=== PATIENT | female | born 1995 | race Caucasian/White ===

== ENCOUNTER 2017-11-13 02:30 | Inpatient (IN) | payer MEDICAID ==
[2017-11-13] MEDS ORDERED: Phenaphthazine-PH Test Paper VI ONE (02:53)
[2017-11-13] MEDS: Lactated Ringer's 1,000 ML IV SCH ×3 (03:15→05:44)
[2017-11-13 03:16] VITALS: BMI 22.1
[2017-11-13] MEDS ORDERED: Oxytocin 30 units/LR 500ML 30 U/500 ML BAG IV SCH ×2 (03:30→03:39)
[2017-11-13 03:41] LABS: BASO % 0.3 % (0.0-2.0); EOS % 0.2 % (0.0-4.0); HEMOGLOBIN 13.7 g/dL (12.0-16.0); LYMPH # 2.8 K/uL (1.0-4.3); LYMPH % 22.3 % (20.0-40.0); MEAN CELL VOLUME 83.8 fl (81.0-99.0); MEAN CORPUSCULAR HEMOGLOBIN 27.3 pg (27.0-31.0); MEAN CORPUSCULAR HGB CONC 32.5 g/dL (33.0-37.0); MEAN PLATELET VOLUME 9.7 fl (7.2-11.7); MONO # 1.1 K/uL (0.0-0.8); MONO % 8.8 % (0.0-10.0); NEUT # 8.5 K/uL (1.8-7.0); NEUT % 68.4 % (50.0-75.0); RBC 5.01 Mil/uL (3.80-5.20); RED CELL DISTRIBUTION WIDTH 14.1 % (11.5-14.5); WHITE BLOOD COUNT 12.5 K/uL (4.8-10.8)
[2017-11-13] MEDS ORDERED: Fentanyl/Bupivacaine HCl 250 ML EPI ONE (04:14)
[2017-11-13] MEDS ORDERED: Bupivacaine HCl 0.25% PF (10 ml) Inj ONE (04:16)
[2017-11-13 06:32] VITALS: TEMP 98.4
[2017-11-13] MEDS ORDERED: Lidocaine 1% Inj (20ml) ONE (07:59)
[2017-11-13] MEDS ORDERED: Oxycodone/Acetaminophen 5/325 mg Tab PO PRN (11:35)
[2017-11-13] MEDS ORDERED: Benzocaine/Menthol SPRAY TOP PRN (11:35)
--- NOTE | 2017-11-13 11:47 | OBDS ---
DELIVERY PERSONNEL Nurse Clinical Lab Clerk Certified: brianna Delivery Doctor: Karen Tong MD Scrub Nurse: brianna Anesthesiologist: Oliver Zavala MD Disability Aide: brianna Resident: Dr Recinos MATERNAL INFORMATION Delivery Anesthesia: Local; Epidural Medications in Delivery: pitocin Estimated Blood Loss (ml): 150cc Placenta Cultured: No Maternal Complications: None RN Comments: to alive baby girl; 9/9;placenta delivered complete; laceration repaired; une ventful delivery Provider Comments: Pt progressed to complete and pushed to deliver a viable female infant through cl ear fluid at 11:08am. Apgars 9 and 9. Wt 2905 gms, 6#6. Infant placed on mother's abdomen. Cord do ubly clamped and cut. Cord blood collected. Placenta delivered spontaneously intact w/ a 3vc at 11: 12 am. Vagina and perineum infiltrated w/ lidocaine. Second degree tear repaired w/ 2-0 rapide and 3 -0v. Rectum intact. Pt and baby tolerated the procedure well. EBL: 150mL LABOR SUMMARY EDC: 11/30/2017 00:00 No. Babies in Womb: 1 Attempted: No Labor Anesthesia: Epidural LABOR INFORMATION Onset of Labor: 11/13/2017 04:00 Complete Dilatation: 11/13/2017 08:30 Other Ripening Agents: na Oxytocin: na Group B Beta Strep: Done, Result Unknown Antibiotics # of Doses: none Antibiotics Time of Last Dose: none Steroids Given: None Reason Steroids Not Administered: Not Applicable Other Reason Not Administered: none MEMBRANES Membranes Rupture Method: Spontaneous Rupture of Membranes: 11/13/2017 02:00 Length of Rupture (hrs): 9.13 Amniotic Fluid Color: Clear Amniotic Fluid Amount: Moderate Amniotic Fluid Odor: Normal STAGES OF LABOR Stage 1 hrs: 4 Stage 1 min: 30 Stage 2 hrs: 2 Stage 2 min: 38 Stage 3 hrs: 0 Stage 3 min: 4 Total Time in Labor hrs: 7 Total Time in Labor min: 12 VAGINAL DELIVERY Episiotomy: None Laceration Extension: Second Degree Laceration Type: Perineal Other Laceration: na Laceration Repair: Yes Initial Vag Sponge Count: 6 Final Vag Sponge Count: 6 Initial Vag Sharps Count: 4 Final Vag Sharps Count: 4 Sharps Count Correct: Yes Count Comment: correct BABY A INFORMATION Delivery Date/Time: 11/13/2017 11:08 Method of Delivery: Vaginal Born in Route : No : N/A Forceps: N/A Vacuum Extraction: N/A Shoulder Dystocia : No SHOULDER DYSTOCIA BABY A Delivery Date/Time: 11/13/2017 11:08 PRESENTATION/POSITION BABY A Presentation: Cephalic Cephalic Presentation: Vertex Vertex Position: Left Occipital Anterior Breech Presentation: N/A PLACENTA INFORMATION BABY A Placenta Delivery Time : 11/13/2017 11:12 Placenta Method of Delivery: Spontaneous Placenta Status: Delivered SCORES BABY A Heart Rate 1 min: >100 bpm Resp Effort 1 min: Good Cry Reflex Irritability 1 min: Cough or Sneeze or Pulls Away Muscle Tone 1 min: Active Motion Color 1 min: Body [place], Extremities Blue SCORE 1 MIN: 9 Heart Rate 5 min: >100 bpm Resp Effort 5 min: Good Cry Reflex Irritability 5 min: Cough or Sneeze or Pulls Away Muscle Tone 5 min: Active Motion Color 5 min: Body [place], Extremities Blue SCORE 5 MIN: 9 INFORMATION BABY A Gestational Age at Delivery: 38.5 Gestational Status: Term Infant Outcome : Liveborn Condition : Stable Sex: Female IDENTIFICATION/MEDS BABY A ID Band Number: [id number] ID Band Location: Left Leg; Left Arm WEIGHT/LENGTH BABY A Infant Birthweight (gms): 2905 Weight (lb): 6 Infant Weight (oz): 6 CORD INFORMATION BABY A No. Cord Vessels: 3 Nuchal Cord : N/A Nuchal Cord Other: na True Knot: na Infant Cord pH Baby Arterial: na Infant Cord pH Baby Venous: na Cord Blood Taken: Yes Banking/Donate Info: na Infant Suction: Mouth; Nose; Pharynx
[2017-11-14 05:45] LABS: HEMOGLOBIN 11.2 g/dL (12.0-16.0); MEAN CELL VOLUME 84.6 fl (81.0-99.0); MEAN CORPUSCULAR HEMOGLOBIN 27.3 pg (27.0-31.0); MEAN CORPUSCULAR HGB CONC 32.3 g/dL (33.0-37.0); RBC 4.11 Mil/uL (3.80-5.20); RED CELL DISTRIBUTION WIDTH 14.3 % (11.5-14.5); WHITE BLOOD COUNT 16.4 K/uL (4.8-10.8)
[2017-11-14] MEDS ORDERED: Influenza Vaccine 18yr & older 0.5 ML/45 MCG SYR IM ONE (10:00)
--- NOTE | 2017-11-14 11:42 | OBPPN ---
Datetime: 11/14/2017 06:31 PP Pain Prov: Within normal limits PP Nausea Prov: Denies PP Flatus Prov: No PP BM Prov: No PP Heart Prov: Normal PP Lungs Prov: Normal PP Abdomen/Uterus Prov: Normal PP CVA Tenderness Prov: Normal PP Extremities Prov: Normal PP Impression Prov: Normal progression PP Plan Prov: Continue present management PP Progress Note Prov: PPD 1 22 y/o female now on PPD 1 seen and examined at bedside this morning. No overnight events. Reports pain is controlled with pain medications. Voiding freely w/o blood noted. Pt reports not pas sing gas per rectum yet. Ambulating well w/o dizziness. Lochia is similar to menses volume. Pt is zonia astfeeding and formula feeding the baby w/o difficulty. Denies nausea, vomiting, fever, chills, ches t pain or calf pain. Physical Exam: General: A_O, resting comfortably in bed, NAD HEENT: oral mucosa moist. Lungs: CTA B/L, no wheezing, rhonchi or rales CVS: RRR, S1, S2 ABD: ND, +BS, firm fundus @ umbilical level. Soft, appropriate TTP. EXT: no edema, negative Zak's sign, Neuro/psych: AAOX3. Assessment: 22 y/o female now doing well on PPD 1 Need for influenza vaccine Plan: OOB w/ caution Regular diet Percocet and Ibuprofen for pain management Senokot for constipation Influenza vaccine ordered for today consult for Encourage and ambulation Anticipate discharge tomorrow Sultan Castaneda, PGY-1 Case d/w on-call OB hospitalist OB Hospitalist note. Pt seen on ronds this morning. Agree with PGY1 note [facility]NDO Vital Signs Provider PP: Reviewed; Within Normal Limits
[2017-11-14] MEDS: Lactated Ringer's 1,000 ML IV SCH (12:01)
--- NOTE | 2017-11-15 12:02 | OBPPN ---
Datetime: 11/15/2017 06:18 PP Pain Prov: Within normal limits PP Nausea Prov: Denies PP Flatus Prov: Yes PP BM Prov: No PP Heart Prov: Normal PP Lungs Prov: Normal PP Abdomen/Uterus Prov: Normal PP Lochia Prov: Normal PP CVA Tenderness Prov: Normal PP Extremities Prov: Normal PP Impression Prov: Normal progression PP Plan Prov: Discharge PP Progress Note Prov: 22 y/o female now on PPD 2 seen and examined at bedside this morning. No overnight events. Reports pain is controlled with pain medications. Voiding freely w/o blood noted. Pt reports passing gas per rectum but no BM yet. Ambulating well w/o dizziness. Lochia is similar to menses volume. Pt is the baby w/o difficulty. Denies nausea, vomiting, fever, chills, chest pain or calf pain. Physical Exam: General: A_O, resting comfortably in bed, NAD HEENT: oral mucosa moist. Lungs: CTA B/L, no wheezing, rhonchi or rales CVS: RRR, S1, S2 ABD: ND, +BS, firm fundus @ umbilical level. Soft, appropriate TTP. EXT: no edema, negative Zak's sign, Neuro/psych: AAOX3. Assessment: 22 y/o female now doing well on PPD 2 Plan: Discharge to home today PNV 1 PO qdaily Ibuprofen 600 mg 1 tab po prn q6 if moderate/severe pain Encourage . Ambulation with caution,nothing per vaginal, no heavy lifting, if excessive bleeding or fever w/o relief from pain medication go to ED. Follow up at your clinic in 4-6 weeks for visit. Sultan Castaneda, PGY-1 Case d/w on-call OB hospitalist She was seen with the resident I agree with the note Vital Signs Provider PP: Reviewed
--- NOTE | 2017-11-15 12:04 | OBDCSUM ---
Datetime: 11/15/2017 06:21 Discharged to, Provider: Home Follow up at, Provider: your clinic Disch Instr Activity: May be up to bathroom; May be up for meals; May Shower Disch Instr Diet: Regular Discharge Instructions, Provider: Routine instructions given Discharge Diagnosis, Provider: Term Delivered Follow up in weeks, Provider: in 4-6 weeks for visit Contraception discussed, Prov: Yes Disch Activity Restrictions: No exercising; No lifting; Minimize stair-climbing; No sexual activity; Nothing in vagina - Jacobus, tampons, douche Discharge Comment, Provider: Discharge to home today Take vitamin daily take ibuprofen 600 mg 1 tab every 6 hours as needed for pain Encouraged . Ambulation with caution,nothing per vaginal, no heavy lifting, if excessive bleeding or fever w/o relief from pain medications go to ED. Follow up at your clinic in 4 to 6 weeks for visit. The patient was seen with the resident I agree with note Contraception after Delivery: Foam/Condoms
[2017-11-15 18:22] VITALS: BP 108/62; PULSE 86; RESP 19; O2SAT 100
== END 2017-11-15 12:25 | disposition home or self-care (01) | DRG 775 ==
LOC: H.EROB2 02:30 → H.L&D 03:16 → H.OB/GYN 14:00
PROVIDERS: ADMIT Obstetrics & Gynecology; ATTEND Obstetrics & Gynecology
PROC: 10E0XZZ Delivery of Products of Conception, External Approach (ICD-10-PCS; principal; 2017-11-13)
PROC: 0KQM0ZZ Repair Perineum Muscle, Open Approach (ICD-10-PCS; 2017-11-13)
PROC: 4A1HXCZ Monitoring of Products of Conception, Cardiac Rate, External Approach (ICD-10-PCS; 2017-11-13)
PROC: 3E0234Z Introduction of Serum, Toxoid and Vaccine into Muscle, Percutaneous Approach (ICD-10-PCS; 2017-11-14)
DX: O70.1 Second degree perineal laceration during delivery (principal); Z37.0 Single live birth; Z23 Encounter for immunization; Z3A.38 38 weeks gestation of pregnancy